=== PATIENT | female | born 1990 | race Caucasian/White ===

== ENCOUNTER 2018-01-20 11:19 | Emergency (ER) | payer OTHER ==
[~2018-01-20] VITALS: Ht 165.1 cm; Wt 54.4 kg
[2018-01-20 11:20] VITALS: BP_SYST 115
[2018-01-20] MEDS ORDERED: NACL 0.9% 1,000 ML IV ONE (12:45)
[2018-01-20] MEDS ORDERED: MORPHINE 2 MG/ML INJ. SYRINGE IVP ONE (12:45)
[2018-01-20 12:51] LABS: BASOPHILS # (AUTO) 0.1 K/uL (0.0-0.2); BASOPHILS % (AUTO) 1.8 % (0.0-2.0); EOSINOPHILS # (AUTO) 0.2 K/uL (0.0-0.4); EOSINOPHILS % (AUTO) 4.3 % (0.0-4.0); HEMATOCRIT 42.8 % (36-48); LYMPHOCYTES # (AUTO) 1.6 K/uL (1.0-5.5); LYMPHOCYTES % (AUTO) 33.9 % (20.5-51.5); MEAN CORPUSCULAR HEMOGLOBIN 30 pg (27-31); MEAN CORPUSCULAR HGB CONC 33 % (32-36); MEAN CORPUSCULAR VOLUME 90 fL (79.0-98.0); MONOCYTES # (AUTO) 0.4 K/uL (0.0-1.0); MONOCYTES % (AUTO) 8.2 % (1.7-9.3); NEUTROPHILS # (AUTO) 2.5 K/uL (1.8-7.7); NEUTROPHILS % (AUTO) 51.8 % (40.0-70.0); PLATELET COUNT (AUTO) 194 K/uL (130-430); RED BLOOD CELL COUNT(AUTO) 4.74 MIL/uL (4.2-6.2); RED CELL DISTRIBUTION WIDTH 11.8 % (9.0-15.0); WHITE BLOOD COUNT (AUTO) 4.8 K/uL (4.8-10.8)
[2018-01-20 12:51] LABS: BILIRUBIN,URINE NEGATIVE (NEGATIVE); BLOOD, URINE NEGATIVE (NEGATIVE); CLARITY/URINE CLEAR (CLEAR); COLOR,URINE YELLOW (YELLOW); GLUCOSE,URINE NEGATIVE (NEGATIVE); KETONES,URINE NEGATIVE (NEGATIVE); LEUKOCYTE ESTERASE ,URINE NEGATIVE (NEGATIVE); NITRITE, URINE NEGATIVE (NEGATIVE); PH,URINE 6.5 (5.0-8.0); PROTEIN URINE NEGATIVE (NEGATIVE); UROBILINOGEN,URINE 0.2 (0.2-1.0)
[2018-01-20 13:01] LABS: CALCIUM 9.2 mg/dL (8.4-11.0); CREATININE 0.82 mg/dL (0.55-1.30); POTASSIUM 3.8 mmol/L (3.5-5.1)
[2018-01-20 13:06] LABS: TOTAL BILIRUBIN 0.6 mg/dL (0.0-1.0)
[2018-01-20] MEDS ORDERED: ONDANSETRON 4 MG ODT TAB PO ONE (13:30)
[2018-01-20] MEDS ORDERED: KETOROLAC TROMETHAMINE 15 MG VIAL IVP ONE (13:45)
[2018-01-20 14:50] VITALS: BP_SYST 112
== END 2018-01-20 14:50 | disposition home or self-care (01) ==
LOC: SED 11:19
DX: E86.0 Dehydration (principal); R55 Syncope and collapse; R00.1 Bradycardia, unspecified; Z88.1 Allergy status to other antibiotic agents
CPT/HCPCS: 36415; 70450; 70486; 72125; 80053; 81003; 84703; 85025; 93005; 96361; 96374; 99285; J1885; J2270; J7030; Q0162